=== PATIENT | female | born 1960 | race Caucasian/White ===

== ENCOUNTER 2023-08-09 23:45 | Emergency (ER) | payer BC ==
[2023-08-10 00:22] LABS: APPEARANCE,URINE CLOUDY (Clear); BILIRUBIN,URINE NEGATIVE (Negative); COLOR,URINE PINK (Yellow); GLUCOSE,URINE NEGATIVE (Negative); KETONES,URINE NEGATIVE (Negative); LEUKOCYTE ESTERASE,URINE 2+ (Negative); NITRITE,URINE NEGATIVE (Negative); OCCULT BLOOD,URINE 3+ (Negative); PROTEIN,URINE 2+ (Negative); UROBILINOGEN,URINE 0.2 (0.2-1.0)
[2023-08-10 00:31] LABS: BACTERIA,URINE MODERATE /hpf (FEW); MUCUS,URINE NOT SEEN /hpf (FEW); RBC,URINE >100 /hpf (0-5); SQUAMOUS EPITHELIAL CELLS,UR 0-5 /hpf (0-5); WBC,URINE 40-50 /hpf (0-5)
[2023-08-10] MEDS ORDERED: Sulfamethoxazole/Trimethoprim 800-160 MG Tab PO ONE (00:41)
[2023-08-10] MEDS: Phenazopyridine 95 MG Tab PO ONE (01:01)
[2023-08-10] MEDS ORDERED: Phenazopyridine 95 MG Tab PO SCH (09:00)
== END 2023-08-10 01:07 | disposition home or self-care (01) ==
LOC: JD.ED 23:45
DX: N39.0 Urinary tract infection, site not specified (principal)
CPT/HCPCS: 81001; 87086; 87088; 87186; 99283; A9270